=== PATIENT | female | born 1980 | race Caucasian/White ===

== ENCOUNTER 2016-06-08 14:15 | Emergency (ER) | payer BC ==
[2016-06-08] MEDS ORDERED: IOPAMIDOL 300 (61%) 100 ML VIAL IV ONE (14:16)
[2016-06-08 15:08] LABS: ABSOLUTE NEUTROPHIL COUNT 4.8 K/mm3 (1.8-7.7); BASO % 0.5 % (0.2-1.0); EOS # 0.4 (0.0-0.5); EOS % 5.5 % (0.9-2.9); HEMATOCRIT 39.1 % (37.0-47.0); HEMOGLOBIN 12.9 gm/l (12.0-16.0); IMM NEUT% 0.3 % (0-1); LYMPH # 1.9 (1.0-4.8); LYMPH % 24.3 % (15-45); MEAN CELL VOLUME 90.5 fl (81.0-99.0); MEAN CORPUSCULAR HEMOGLOBIN 29.9 pg (27.0-31.0); MEAN PLATELET VOLUME 10.8 fl (7.4-10.4); MONO # 0.7 (0.0-0.8); MONO % 8.7 % (4-12); NEUT % 60.7 % (43-75); PLATELET COUNT 179 K/mm3 (130-400); RED CELL DISTRIBUTION WIDTH 12.3 % (11.5-14.5)
[2016-06-08 15:09] LABS: URINE BILIRUBIN NEGATIVE (NEGATIVE); URINE BLOOD NEGATIVE (NEGATIVE); URINE GLUCOSE (UA) NEGATIVE (NEGATIVE); URINE LEUKOCYTE ESTERASE TRACE (NEGATIVE); URINE NITRITE NEGATIVE (NEGATIVE); URINE PROTEIN TRACE (NEGATIVE); URINE UROBILINOGEN 1 mg/dL (0-1 mg/dl)
[2016-06-08 15:10] LABS: URINE APPEARANCE CLEAR; URINE COLOR AMBER
[2016-06-08 15:17] LABS: URINE RBC 0 /hpf
[2016-06-08 15:19] LABS: URINE BACTERIA FEW
[2016-06-08 15:29] LABS: ALBUMIN 4.3 gm/dL (3.5-5.7)
[2016-06-08] MEDS ORDERED: ONDANSETRON 4 MG/2ML 2 ML VIAL ONE (15:53)
[2016-06-08] MEDS ORDERED: SODIUM CHLORIDE 0.9% 1,000 ML ONE (15:53)
--- NOTE | 2016-06-08 16:37 | CT ---
Exam: CT abdomen and pelvis with contrast COMPARISON: 10/18/2015, 12/18/2009 INDICATION: Right lower quadrant pain for one month. TECHNIQUE: CT examination of the abdomen and pelvis was obtained following the administration of 100 mL Isovue-300 intravenous contrast. FINDINGS: The bowel, including the appendix, is within normal limits there is no bowel obstruction, free air or free intraperitoneal fluid. Nephrolithiasis is again appreciated, with 2 nonobstructing calculi in each kidney measuring up to 3 mm. There is no hydronephrosis or perinephric stranding. The 2 low-density lesions in the region of the tail the pancreas are again appreciated, and have been present dating back to the 2009 exam. While they have increased since 2009, they have not significantly changed since last years exam. One measures up to 3.2 cm and the other measures up to 1.4 cm. Pancreas is otherwise unremarkable. Spleen is normal in size. Liver unremarkable. Gallbladder is present within normal limits. There is no adrenal mass. Uterus is not visualized. There is no adnexal mass. Several phleboliths are again appreciated within the pelvis. Lung bases are clear. Lumbosacral transitional vertebra is noted. Degenerative changes are appreciated lumbosacral junction. IMPRESSION: 1. No acute findings identified to explain right lower quadrant pain. 2. The two low-density lesions in the region the tail of pancreas are again noted, present since 2009 and stable since last year's exam. 3. Nephrolithiasis. No hydronephrosis. 4. Post hysterectomy. No adnexal lesion is seen. Report was uploaded to the EMR at 1633 hours 06/08/2016.
[2016-06-08] MEDS ORDERED: KETOROLAC TROMETHAMINE 30 MG/ML 1 ML VIAL ONE (17:39)
== END 2016-06-08 17:47 | disposition home or self-care (01) ==
LOC: ED 14:15
DX: R10.31 Right lower quadrant pain (principal); F17.210 Nicotine dependence, cigarettes, uncomplicated; Z87.442 Personal history of urinary calculi
CPT/HCPCS: 83690; 84703; 85025; 80053; 81001; 74177; 99284 ×2; 96374; 96361; J1885; J2405; J7030; Q9967